=== PATIENT | female | born 1960 | race American Indian/Alaskan Native ===

== ENCOUNTER 2018-01-18 19:58 | Emergency (ER) | payer BC ==
[~2018-01-18] VITALS: Ht 149.9 cm; Wt 81.8 kg
[2018-01-18 20:39] LABS: BASOPHILS % (AUTO) 0.3 % (0-1); EOSINOPHILS # (AUTO) 0.3 X10'3 (0-0.9); EOSINOPHILS % (AUTO) 5.7 % (0-6); HEMOGLOBIN 12.5 g/dl (12.0-16.0); LYMPHOCYTES # (AUTO) 1.4 X10'3 (1.1-4.8); MEAN CORPUSCULAR HEMOGLOBIN 25.9 PG (27.0-31.0); MEAN CORPUSCULAR HGB CONC 32.9 % (33.0-36.5); MEAN CORPUSCULAR VOLUME 78.5 FL (78-98); MEAN PLATELET VOLUME 8.6 FL (7.4-10.4); MONOCYTES # (AUTO) 0.4 X10'3 (0-0.9); MONOCYTES % (AUTO) 7.5 % (2-12); NEUTROPHILS % (AUTO) 59.5 % (42-75); PLATELET COUNT 272 X10'3 (140-440); RED BLOOD COUNT 4.83 X10'6 (4.20-5.60); RED CELL DISTRIBUTION WIDTH 31.7 % (11.5-14.5); WHITE BLOOD COUNT 5.1 X10'3 (4.5-11.0)
[2018-01-18 21:05] LABS: ALANINE AMINOTRANSFERASE 28 U/L (12-78); ALBUMIN 4.1 G/DL (3.4-5.0); ALKALINE PHOSPHATASE 76 IU/L (46-116); ANION GAP 15 (8-16); ASPARTATE AMINO TRANSFERASE 19 U/L (10-37); BILIRUBIN,TOTAL 0.3 MG/DL (0.1-1.0); BLOOD UREA NITROGEN 10 MG/DL (7-18); BUN/CREATININE RATIO 13.9 (6.6-38.0); CALCIUM 8.8 MG/DL (8.5-10.1); CHLORIDE 110 MMOL/L (99-107); CREATININE 0.72 MG/DL (0.40-0.90); ETHANOL 0.188 GM/DL (0.0-0.010); GLUCOSE 149 MG/DL (70-104); POTASSIUM 3.5 MMOL/L (3.5-5.1); SODIUM 148 MMOL/L (135-145); TOTAL CARBON DIOXIDE 22.9 MMOL/L (24-32); TOTAL PROTEIN 8.1 G/DL (6.4-8.2); eGFR 83 ML/MIN
[2018-01-18 21:17] LABS: PLATELET ESTIMATE NORMAL
[2018-01-18 21:20] LABS: ANISOCYTOSIS 3+; MICROCYTOSIS 1+; POLYCHROMASIA FEW
[2018-01-18] MEDS ORDERED: DULO30CA51 (22:31)
[2018-01-18] MEDS ORDERED: TRIA80OI (22:31)
[2018-01-18] MEDS ORDERED: ZOLP10TA5 (22:31)
[2018-01-18] MEDS ORDERED: ESTR1PAT97 (22:31)
[2018-01-18] MEDS ORDERED: HYDR-3686 (22:31)
[2018-01-18 22:55] LABS: URINE HCG NEGATIVE (NEG)
[2018-01-18 23:11] LABS: CLARITY,URINE CLEAR (Clear); COLOR,URINE YELLOW (Yellow); GLUCOSE, URINE NEGATIVE (Neg); KETONES,URINE NEGATIVE (Neg); LEUKOCYTE ESTERASE ,URINE NEGATIVE (Neg); NITRITES, URINE NEGATIVE (Neg); OCCULT BLOOD,URINE NEGATIVE (Neg); PH,URINE 6.5 (4.8-8.0); PROTEIN,URINE NEGATIVE (Neg); UROBILINOGEN,URINE 0.2 E.U/dL (0.2-1.0)
[2018-01-18 23:12] LABS: UA COLLECTION TYPE URINAL
[2018-01-18 23:19] LABS: URINE AMPHETAMINE SCREEN NEGATIVE (Neg); URINE BARBITUATE SCREEN NEGATIVE (Neg); URINE BENZODIAZEPINES SCREEN NEGATIVE (Neg); URINE CANNABINOID SCREEN POSITIVE (Neg); URINE COCAINE SCREEN NEGATIVE (Neg); URINE METHADONE SCREEN NEGATIVE (Neg); URINE OPIATE SCREEN NEGATIVE (Neg); URINE PHENCYCLIDINE SCREEN NEGATIVE (Neg)
[2018-01-19] MEDS ORDERED: zolpidem 5mg tablet PO ONE (01:10)
[2018-01-19] MEDS ORDERED: calcium carbonate 500mg chew tablet PO ONE (03:10)
[2018-01-19 05:30] VITALS: BP 164/67
[2018-01-19] MEDS ORDERED: zolpidem PO (07:04)
[2018-01-19] MEDS ORDERED: CALC500T11 PO (07:04)
[2018-01-19] MEDS ORDERED: METF500T PO (07:04)
[2018-01-19] MEDS ORDERED: CETI5TAB8 PO (07:04)
[2018-01-19] MEDS ORDERED: DULO-31 PO (07:04)
[2018-01-19] MEDS ORDERED: omeprazole PO (07:04)
[2018-01-19] MEDS ORDERED: ZOLP10TA5 PO (07:35)
[2018-01-19] MEDS ORDERED: OMEP20TA5 PO (07:35)
[2018-01-19] MEDS ORDERED: cetirizine 10mg tablet PO PRN (08:15)
[2018-01-19] MEDS ORDERED: calcium carbonate 500mg chew tablet PO PRN (08:15)
[2018-01-19] MEDS ORDERED: zolpidem 5mg tablet PO PRN (08:15)
[2018-01-19] MEDS ORDERED: calcium carbonate 500mg chew tablet PO SCH (08:30)
[2018-01-19] MEDS ORDERED: duloxetine 30mg CAPSULE.DR PO SCH (10:15)
[2018-01-19] MEDS ORDERED: pantoprazole 40mg Tablet.DR PO SCH (10:25)
[2018-01-19] MEDS ORDERED: ESTR1PAT TD (10:46)
[2018-01-19] MEDS ORDERED: metFORMIN 500mg tablet PO SCH ×2 (13:00)
[2018-01-20] MEDS ORDERED: duloxetine 30mg CAPSULE.DR PO SCH (08:00)
[2018-01-20] MEDS ORDERED: pantoprazole 40mg Tablet.DR PO SCH (08:00)
== END 2018-01-19 13:54 | disposition home or self-care (01) ==
LOC: EDBD 19:58 → ER 20:05
DX: R45.851 Suicidal ideations (principal); Z79.84 Long term (current) use of oral hypoglycemic drugs; Z79.899 Other long term (current) drug therapy
CPT/HCPCS: 36415; 80053; 80305; 80320; 81003; 81025; 82948; 84443; 85025; 99285

== ENCOUNTER 2018-01-21 13:27 | Emergency (ER) | payer BC ==
[~2018-01-21] VITALS: Ht 149.9 cm; Wt 67.0 kg
[~2018-01-21 13:27] MED LIST: CALC500T11 PO; CETI5TAB8 PO; DULO-31 PO; ESTR1PAT TD; METF500T PO; OMEP20TA5 PO; ZOLP10TA5 PO
[2018-01-21 13:35] VITALS: BP 143/90
[2018-01-21 14:09] LABS: BASOPHILS % (AUTO) 0.7 % (0-1); EOSINOPHILS # (AUTO) 0.3 X10'3 (0-0.9); EOSINOPHILS % (AUTO) 5.6 % (0-6); HEMATOCRIT 38.1 % (35.0-45.0); HEMOGLOBIN 12.5 g/dl (12.0-16.0); LYMPHOCYTES % (AUTO) 19.2 % (21-51); MEAN CORPUSCULAR HEMOGLOBIN 26.6 PG (27.0-31.0); MEAN CORPUSCULAR HGB CONC 32.9 % (33.0-36.5); MEAN CORPUSCULAR VOLUME 80.8 FL (78-98); MEAN PLATELET VOLUME 8.3 FL (7.4-10.4); MONOCYTES # (AUTO) 0.5 X10'3 (0-0.9); NEUTROPHILS # (AUTO) 3.3 X10'3 (1.8-7.7); NEUTROPHILS % (AUTO) 65.5 % (42-75); PLATELET COUNT 277 X10'3 (140-440); RED BLOOD COUNT 4.71 X10'6 (4.20-5.60); RED CELL DISTRIBUTION WIDTH 30.6 % (11.5-14.5)
[2018-01-21 14:32] LABS: ALANINE AMINOTRANSFERASE 25 U/L (12-78); ALBUMIN 3.9 G/DL (3.4-5.0); ALBUMIN/GLOBULIN RATIO 1.1 (1.1-1.5); ALKALINE PHOSPHATASE 60 IU/L (46-116); ANION GAP 11 (8-16); ASPARTATE AMINO TRANSFERASE 15 U/L (10-37); BILIRUBIN,TOTAL 0.4 MG/DL (0.1-1.0); BLOOD UREA NITROGEN 10 MG/DL (7-18); BUN/CREATININE RATIO 13.7 (6.6-38.0); CALCIUM 8.9 MG/DL (8.5-10.1); CHLORIDE 103 MMOL/L (99-107); CREATININE 0.73 MG/DL (0.40-0.90); GLUCOSE 105 MG/DL (70-104); POTASSIUM 3.3 MMOL/L (3.5-5.1); SODIUM 140 MMOL/L (135-145); TOTAL CARBON DIOXIDE 26.3 MMOL/L (24-32); TOTAL PROTEIN 7.3 G/DL (6.4-8.2); eGFR 82 ML/MIN
[2018-01-21 14:36] LABS: CLARITY,URINE SLIGHTLY CLOUDY (Clear); COLOR,URINE YELLOW (Yellow); GLUCOSE, URINE NEGATIVE (Neg); KETONES,URINE NEGATIVE (Neg); LEUKOCYTE ESTERASE ,URINE TRACE (Neg); NITRITES, URINE NEGATIVE (Neg); OCCULT BLOOD,URINE NEGATIVE (Neg); PROTEIN,URINE NEGATIVE (Neg); UA COLLECTION TYPE CLN CATCH MIDSTREAM; UROBILINOGEN,URINE 0.2 E.U/dL (0.2-1.0)
[2018-01-21 14:41] LABS: URINE AMPHETAMINE SCREEN NEGATIVE (Neg); URINE BARBITUATE SCREEN NEGATIVE (Neg); URINE BENZODIAZEPINES SCREEN NEGATIVE (Neg); URINE CANNABINOID SCREEN POSITIVE (Neg); URINE COCAINE SCREEN NEGATIVE (Neg); URINE METHADONE SCREEN NEGATIVE (Neg); URINE OPIATE SCREEN NEGATIVE (Neg); URINE PHENCYCLIDINE SCREEN NEGATIVE (Neg)
[2018-01-21] MEDS ORDERED: potassium Cl oral solution 20 MEQ/15 ML PO ONE (15:20)
[2018-01-21 15:48] LABS: MUCUS STRANDS FEW /LPF (Neg); SQUAMOUS EPITHELIAL CELL,UR MANY /LPF (FEW)
[2018-01-21 15:49] LABS: BACTERIA,URINE 4+ /HPF (Neg); RBC,URINE 0-2 /HPF (0-2)
== END 2018-01-21 17:31 | disposition home or self-care (01) ==
LOC: ER 13:29
DX: F32.9 Major depressive disorder, single episode, unspecified (principal); F41.9 Anxiety disorder, unspecified; R45.851 Suicidal ideations; E87.6 Hypokalemia; E11.9 Type 2 diabetes mellitus without complications; Z79.84 Long term (current) use of oral hypoglycemic drugs; Z79.899 Other long term (current) drug therapy
CPT/HCPCS: 36415; 80053; 80305; 81001; 84443; 85025; 99285